=== PATIENT | male | born 1960 | race Caucasian/White ===

== ENCOUNTER 2017-06-10 08:41 | Day surgery (SDC) | payer SELFPAY ==
[2017-06-05 15:09] VITALS: BMI 35.9
[~2017-06-10 08:41] MED LIST: LACTATED RINGERS 1,000 ML IV SCH
[2017-06-10 09:12] VITALS: TEMP 98.1
[2017-06-10] MEDS ORDERED: PROPOFOL 10 MG/ML 20 ML VIAL IV ONE (09:35)
--- NOTE | 2017-06-10 10:01 | P.PCN ---
Date of Procedure: 06/10/17 Procedure(s) Performed: Procedure: Total colonoscopy. Preoperative diagnosis: Screening for neoplasia, patient has history of polyps and family history of colon cancer in his maternal grandmother. Postoperative diagnosis: Exam within normal limits. Preparation: HalfLytely prep. Sedation: Was provided by anesthesia. Brief clinical history: The patient is a 57-year-old male who is scheduled for this evaluation for screening for neoplasia because of history of polyps and family history of colon cancer in his maternal grandmother. His last colonoscopy was 5 years ago. The patient has no abdominal complaints, bleeding or anemia. Procedure: With the patient on his left lateral decubitus position and after informed consent and adequate sedation, the perianal area was inspected and it did not show any fissures or fistulas. There were no masses felt on digital rectal examination. The Olympus CFQ 160L video colonoscope was then inserted in the rectum in the usual fashion and advanced to the cecum. The mucosa appeared healthy. No polyps or tumors were seen or any obvious diverticular disease or other pathology. I retroflexed the endoscope in the rectum before the endoscope was withdrawn. The patient tolerated the procedure well. Plan: The patient was reassured. In light of his history, I am recommending repeat exam in 5 years. He will follow up with you as planned.
[2017-06-10 10:02] VITALS: RESP 16
[2017-06-10 10:15] VITALS: BP 150/93; PULSE 59
== END 2017-06-10 10:32 | disposition home or self-care (01) ==
LOC: ORWHC2ENDO 08:41
DX: Z12.11 Encounter for screening for malignant neoplasm of colon (principal); Z86.010 Personal history of colon polyps; Z80.0 Family history of malignant neoplasm of digestive organs; I10 Essential (primary) hypertension; Z85.828 Personal history of other malignant neoplasm of skin; Z79.891 Long term (current) use of opiate analgesic; Z79.899 Other long term (current) drug therapy
CPT/HCPCS: J2704; G0105

== ENCOUNTER 2019-12-15 16:45 | Observation (INO) | payer OTHER ==
--- NOTE | 2019-12-15 16:50 | ED ---
Chest Pain HPI - General Stated Complaint: chest pain Time Seen by Provider: 12/15/19 16:55 - History of Present Illness Initial Comments: Patient is a 59-year-old male past medical history of hypertension who presents to the emergency department with reported chest pain. Patient reports that patient had chest pain that started one day ago. It is located in the central portion of his chest and feels as something is sitting on his chest. He denies any associated shortness of breath. No ripping or tearing sensation to his back. Admits to associated nausea without vomiting. Denies history of lung or heart disease. No lower extremity swelling. Denies calf pain or calf swelling. No recent travel. She has a history of hypertension. Last stress test was greater than 20 years ago. No other alleviating, precipitating or modifying factors - Related Data Home Medications Medication Instructions Recorded Confirmed Losartan/Hydrochlorothiazide 1 tab PO DAILY 12/15/19 12/15/19 [Losartan-Hctz 100-25 mg Tab] Previous Rx's Medication Instructions Recorded Omeprazole 40 mg PO DAILY #0 12/16/19 Allergies Allergy/AdvReac Type Severity Reaction Status Date / Time No Known Allergies Allergy Verified 12/15/19 18:46 Review of Systems ROS Statement: Those systems with pertinent positive or pertinent negative responses have been documented in the HPI. ROS Other: All systems not noted in ROS Statement are negative. EKG Findings - EKG Comments: EKG Findings:: EKG demonstrates normal sinus rhythm with a ventricular rate of 81. OK interval 148. QRS 94. QTC of 422. Inverted T-wave lead 3. No acute ST segment elevations Past Medical History Past Medical History: Cancer, Hypertension Additional Past Medical History / Comment(s): skin cancer History of Any Multi-Drug Resistant Organisms: None Reported Past Surgical History: Appendectomy Additional Past Surgical History / Comment(s): skin cancer removed from forehead and left arm, surgery "for acid reflux" Past Anesthesia/Blood Transfusion Reactions: Motion Sickness Additional Past Anesthesia/Blood Transfusion Reaction / Comment(s): motrion sickness only in ruff water Past Psychological History: No Psychological Hx Reported Past Alcohol Use History: None Reported Additional Past Alcohol Use History / Comment(s): quit smoking over 30 yrs ago, smoked for 6-8 yrs, 1 PPD Past Drug Use History: None Reported - Past Family History Mother Family Medical History: No Reported History General Exam General appearance: alert, in no apparent distress Head exam: Present: atraumatic, normocephalic, normal inspection Eye exam: Present: normal appearance, PERRL, EOMI. Absent: scleral icterus, conjunctival injection, periorbital swelling ENT exam: Present: normal exam, mucous membranes moist Neck exam: Present: normal inspection. Absent: tenderness, meningismus, lymphadenopathy Respiratory exam: Present: normal lung sounds bilaterally. Absent: respiratory distress, wheezes, rales, rhonchi, stridor Cardiovascular Exam: Present: regular rate, normal rhythm, normal heart sounds. Absent: systolic murmur, diastolic murmur, rubs, gallop, clicks GI/Abdominal exam: Present: soft, normal bowel sounds. Absent: distended, tenderness, guarding, rebound, rigid Extremities exam: Present: normal inspection, full ROM, normal capillary refill. Absent: tenderness, pedal edema, joint swelling, calf tenderness Back exam: Present: normal inspection Neurological exam: Present: alert, oriented X3, CN II-XII intact Psychiatric exam: Present: normal affect, normal mood Skin exam: Present: warm, dry, intact, normal color. Absent: rash Course Vital Signs 12/15/19 12/15/19 16:52 18:41 Temperature 97.9 F Pulse Rate 78 61 Respiratory 18 18 Rate Blood Pressure 147/85 154/98 O2 Sat by Pulse 97 96 Oximetry Chest Pain MDM - MDM Upon arrival the patient is placed into room 3. A thorough history and physical exam is performed. Patient hooked up to continuous pulse ox and cardiac monitoring. A 12-lead EKG is performed. Patient's is taken over for an x-ray of his chest. Laboratory studies are unremarkable. Chest x-ray demonstrates no evidence for acute coronary disease. The results are discussed with the patient. I did recommend hospital admission for continued cardiac monitoring and evaluation by cardiology. The patient did agree to this. I discussed the case with Monie from [facility] who accepted admission. The patient was given an aspirin. He is currently awaiting transport to a bed Disposition Clinical Impression: Chest pain Disposition: ADMITTED IP TO THIS HOSP Condition: Stable Is patient prescribed a controlled substance at d/c from ED?: No Decision to Admit Reason: Admit from EC Decision Date: 12/15/19 Decision Time: 18:34
[2019-12-15 17:20] LABS: Basophils # (A) 0.1 k/uL (0-0.2); Basophils % (A) 1 %; Eosinophils # (A) 0.2 k/uL (0-0.7); Eosinophils % (A) 2 %; HCT 49.4 % (39.0-53.0); HGB 16.3 gm/dL (13.0-17.5); Lymphocytes # (A) 1.6 k/uL (1.0-4.8); Lymphocytes % (A) 16 %; MCH 31.7 pg (25.0-35.0); Mean Platelet Volume 7.5; Monocytes # (A) 0.5 k/uL (0-1.0); Monocytes % (A) 6 %; Neutrophils % (A) 73 %; Platelet Count 316 k/uL (150-450); RBC 5.15 m/uL (4.30-5.90); RDW 12.5 % (11.5-15.5); WBC 9.6 k/uL (3.8-10.6)
[2019-12-15 17:28] LABS: INR 0.9 (<1.2); Partial Thromboplastin Time 24.3 sec (22.0-30.0); Prothrombin Time 9.8 sec (9.0-12.0)
--- NOTE | 2019-12-15 17:36 | XR ---
EXAMINATION TYPE: XR chest 2V DATE OF EXAM: 12/15/2019 COMPARISON: NONE HISTORY: Shortness of breath TECHNIQUE: Frontal and lateral views of the chest are obtained. FINDINGS: Scattered senescent parenchymal changes noted. No evidence for infiltrate. No evidence for atelectasis. Heart size is stable. Mediastinal structures are stable and grossly unremarkable. No evidence for hilar prominence. Degenerative changes dorsal spine. IMPRESSION: 1. No evidence for acute pulmonary disease.
[2019-12-15 17:44] LABS: ALT 21 U/L (4-49); AST 25 U/L (17-59); African American GFR (CKD) >90 (>60 ml/min/1.73 sqM); Albumin 4.5 g/dL (3.5-5.0); Alkaline Phosphatase 98 U/L (38-126); Anion Gap 6 mmol/L; Blood Urea Nitrogen 25 mg/dL (9-20); Calcium 9.5 mg/dL (8.4-10.2); Carbon Dioxide 27 mmol/L (22-30); Chloride 107 mmol/L (98-107); Glucose 108 mg/dL (74-99); Magnesium 2.2 mg/dL (1.6-2.3); Non-African American GFR(CKD) >90 (>60 ml/min/1.73 sqM); Sodium 140 mmol/L (137-145); Total Bilirubin 0.6 mg/dL (0.2-1.3)
[2019-12-15] MEDS ORDERED: NALOXONE 0.4 MG/ML 1 ML VIAL IV PRN (18:35)
[2019-12-15] MEDS ORDERED: ASPIRIN 81 MG PO STA (18:38)
[2019-12-16] MEDS ORDERED: PANTOPRAZOLE 40 MG TABLET PO SCH (07:30)
[2019-12-16 07:34] LABS: Basophils # (A) 0.1 k/uL (0-0.2); Basophils % (A) 1 %; Eosinophils # (A) 0.2 k/uL (0-0.7); Eosinophils % (A) 4 %; HCT 47.9 % (39.0-53.0); HGB 15.6 gm/dL (13.0-17.5); Lymphocytes # (A) 1.6 k/uL (1.0-4.8); Lymphocytes % (A) 25 %; MCH 31.5 pg (25.0-35.0); MCHC 32.6 g/dL (31.0-37.0); MCV 96.7 fL (80.0-100.0); Mean Platelet Volume 7.5; Monocytes # (A) 0.4 k/uL (0-1.0); Monocytes % (A) 7 %; Neutrophils # (A) 3.8 k/uL (1.3-7.7); Neutrophils % (A) 61 %; Platelet Count 281 k/uL (150-450); RBC 4.95 m/uL (4.30-5.90); RDW 12.5 % (11.5-15.5); WBC 6.2 k/uL (3.8-10.6)
[2019-12-16 07:46] LABS: African American GFR (CKD) >90 (>60 ml/min/1.73 sqM); Anion Gap 4 mmol/L; Blood Urea Nitrogen 25 mg/dL (9-20); Calcium 9.3 mg/dL (8.4-10.2); Carbon Dioxide 30 mmol/L (22-30); Chloride 106 mmol/L (98-107); Glucose 107 mg/dL (74-99); Non-African American GFR(CKD) >90 (>60 ml/min/1.73 sqM); Potassium 3.9 mmol/L (3.5-5.1); Sodium 140 mmol/L (137-145)
--- NOTE | 2019-12-16 07:50 | P.HPIM ---
History of Present Illness Patient is a pleasant a 59-year-old male came in with complaints of chest pain mostly in the epigastric area has a long-standing history of her gases. Reflux disease and patient had a procedure I believe Tushar's fundoplication, had a similar pain episodes with nausea and epigastric area on and off mild burning Sensation. Patient came in because the he checks his pulse and he felt he had skipped beats. Patient EKG here which showed sinus rhythm without any acute ST- T wave changes. Patient had 3 sets of troponins which were negative patient chest pain is not associated diaphoresis or shortness of breath nonpleuritic. Patient denied any fever chills cough. Review of Systems REVIEW OF SYSTEMS: CONSTITUTIONAL: No fever, no malaise, no fatigue. HEENT: No recent visual problems or hearing problems. Denied any sore throat. CARDIOVASCULAR: No orthopnea, PND, no palpitations, no syncope. PULMONARY: No shortness of breath, no cough, no hemoptysis. GASTROINTESTINAL: No diarrhea, no vomiting. NEUROLOGICAL: No headaches, no weakness, no numbness. HEMATOLOGICAL: Denies any bleeding or petechiae. GENITOURINARY: Denies any burning micturition, frequency, or urgency. MUSCULOSKELETAL/RHEUMATOLOGICAL: Denies any joint pain, swelling, or any muscle pain. ENDOCRINE: Denies any polyuria or polydipsia. The rest of the 14-point review of systems is negative. Past Medical History Past Medical History: Cancer, Hypertension Additional Past Medical History / Comment(s): skin cancer History of Any Multi-Drug Resistant Organisms: None Reported Past Surgical History: Appendectomy Additional Past Surgical History / Comment(s): skin cancer removed from forehead and left arm, surgery "for acid reflux" Past Anesthesia/Blood Transfusion Reactions: Motion Sickness Additional Past Anesthesia/Blood Transfusion Reaction / Comment(s): motrion sickness only in ruff water Past Psychological History: No Psychological Hx Reported Smoking Status: Former smoker Past Alcohol Use History: None Reported Additional Past Alcohol Use History / Comment(s): quit smoking over 30 yrs ago, smoked for 6-8 yrs, 1 PPD Past Drug Use History: None Reported - Past Family History Mother Family Medical History: No Reported History Medications and Allergies Home Medications Medication Instructions Recorded Confirmed Type Losartan/Hydrochlorothiazide 1 tab PO DAILY 12/15/19 12/15/19 History [Losartan-Hctz 100-25 mg Tab] Omeprazole 40 mg PO DAILY #0 12/16/19 12/15/19 Rx Allergies Allergy/AdvReac Type Severity Reaction Status Date / Time No Known Allergies Allergy Verified 12/15/19 18:46 Physical Exam Vitals: Vital Signs Temp Pulse Pulse Resp BP BP Pulse Ox 12/16/19 03:00 97.7 F 65 126/77 97 12/15/19 21:45 58 L 12/15/19 19:46 98.3 F 58 L 133/86 95 12/15/19 18:41 61 18 154/98 96 12/15/19 16:52 97.9 F 78 18 147/85 97 Intake and Output 12/15/19 12/16/19 12/16/19 22:59 06:59 14:59 Intake Total 400 Balance 400 Intake: Oral 400 Other: Voiding Method Toilet Toilet Weight 102.965 kg PHYSICAL EXAMINATION: GENERAL: The patient is alert and oriented x3, not in any acute distress. Well developed, well nourished. HEENT: Pupils are round and equally reacting to light. EOMI. No scleral icterus. No conjunctival pallor. Normocephalic, atraumatic. No pharyngeal erythema. No thyromegaly. CARDIOVASCULAR: S1 and S2 present. No murmurs, rubs, or gallops. PULMONARY: Chest is clear to auscultation, no wheezing or crackles. ABDOMEN: Soft, nontender, nondistended, normoactive bowel sounds. No palpable organomegaly. MUSCULOSKELETAL: No joint swelling or deformity. EXTREMITIES: No cyanosis, clubbing, or pedal edema. NEUROLOGICAL: Gross neurological examination did not reveal any focal deficits. SKIN: No rashes. Results CBC & Chem 7: 12/16/19 06:26 12/16/19 06:26 Labs: Abnormal Lab Results - Last 24 Hours (Table) 12/15/19 12/16/19 Range/Units 17:09 06: BUN 25 H 25 H (9-20) mg/dL Glucose 108 H 107 H (74-99) mg/dL Thrombosis Risk Factor Assmnt - Choose All That Apply Any of the Below Risk Factors Present?: Yes Each Factor Represents 1 point: Obesity (BMI >25) Thrombosis Risk Factor Assessment Total Risk Factor Score: 1 Thrombosis Risk Factor Assessment Level: Low Risk Assessment and Plan Plan: -Chest pain: Ruled out acute coronary syndromes, patient will undergo echocardiogram and a stress test if that's negative patient will be discharged with chest pain is mostly secondary to gaseous visual reflux disease patient was advised take Prilosec on as-needed basis the parasacral increased to 40 mg and patient was asked to take it for 14 days. -Hypertension: Patient will be resumed on his home medications -Back pain: Chronic. Weight loss and dietary management was advised His stresses is negative patient will be discharged later today
--- NOTE | 2019-12-16 07:50 | P.DS ---
Providers Date of admission: 12/15/19 18:35 Attending physician: Joshua Dang Consults: 12/15/19 18:35 Consult Physician Urgent Consulting Provider: [facility] Consult Reason/Comments: acute chest pain, possible acs Do you want consulting provider notified?: Yes Primary care physician: Dung Draper [facility] Course: Please refer to my HPI for further details Patient Condition at Discharge: Stable Plan - Discharge Summary Discharge Rx Participant: No New Discharge Prescriptions: Continue Losartan/Hydrochlorothiazide [Losartan-Hctz 100-25 mg Tab] 1 tab PO DAILY Changed Omeprazole 40 mg PO DAILY #0 Discharge Medication List Losartan/Hydrochlorothiazide [Losartan-Hctz 100-25 mg Tab] 1 tab PO DAILY 12/15/19 [History] Omeprazole 40 mg PO DAILY #0 12/16/19 [Rx] Follow up Appointment(s)/Referral(s): Dung Draper MD [Primary Care Provider] - 3 Days Discharge Disposition: HOME SELF-CARE
[2019-12-16 08:36] VITALS: BP 156/99; PULSE 62; RESP 16; TEMP 98.3
[2019-12-16] MEDS ORDERED: LOSARTAN-HCTZ 50-12.5 MG 1 EACH TAB PO SCH (09:00)
--- NOTE | 2019-12-16 10:48 | ECHOF ---
Referral Reason:cp MEASUREMENTS -------- HEIGHT: 172.7 cm WEIGHT: 103.0 kg BP: 126/77 RVIDd: 3.8 cm (< 3.3) IVSd: 1.7 cm (0.6 - 1.1) LVIDd: 3.7 cm (3.9 - 5.3) LVPWd: 1.5 cm (0.6 - 1.1) IVSs: 1.9 cm LVIDs: 2.6 cm LVPWs: 2.0 cm LAESV Index (A-L): 28.04 ml/m Ao Diam: 2.9 cm (2.0 - 3.7) AV Cusp: 1.9 cm (1.5 - 2.6) MV EXCURSION: 20.180 mm (> 18.000) MV EF SLOPE: 74 mm/s (70 - 150) EPSS: 0.3 cm MV E Kamlesh: 0.64 m/s MV DecT: 224 ms MV A Kamlesh: 0.83 m/s MV E/A Ratio: 0.78 RAP: 5.00 mmHg RVSP: 27.41 mmHg FINDINGS -------- Sinus rhythm. This was a technically difficult study with suboptimal views. The left ventricular size is normal. There is moderate concentric left ventricular hypertrophy. O verall left ventricular systolic function is normal with, an EF between 55 - 60 %. The diastolic fi lling pattern is normal for the age of the patient 10.09. The right ventricle is mild to moderately enlarged. Normal LA size by volume 22+/-6 ml/m2. The right atrium is mildly enlarged. 5.0mg of Lumason was utilized for enhancement of images Interatrial and interventricular septum intact. There is mild aortic valve sclerosis. There is no evidence of aortic regurgitation. There is no e vidence of aortic stenosis. The mitral valve is normal. Mild mitral regurgitation is present. Mild tricuspid regurgitation present. There is no evidence of pulmonary hypertension. The right v entricular systolic pressure, as measured by Doppler, is 27.41mmHg. There is no pulmonic regurgitation present. The aortic root size is normal. The inferior vena cava is mildly dilated. There is no pericardial effusion. CONCLUSIONS -------- 1. There is moderate concentric left ventricular hypertrophy. 2. Overall left ventricular systolic function is normal with, an EF between 55 - 60 %. 3. The diastolic filling pattern is normal for the age of the patient 10.09 4. The right ventricle is mild to moderately enlarged. 5. Normal LA size by volume 22+/-6 ml/m2. 6. The right atrium is mildly enlarged. 7. There is mild aortic valve sclerosis. 8. Mild mitral regurgitation is present. 9. Mild tricuspid regurgitation present. PATCH PRESS OPERATOR: Nilda Paul RDCS
--- NOTE | 2019-12-16 11:29 | CONS ---
CONSULTATION Mr. Bowers is a 59-year-old male with a history of gastroesophageal reflux disease, history of hyper-attention, who presented with symptoms of chest discomfort as well as arrhythmia. The patient is quite active physically with cardiac recently without any symptoms. Yesterday, he has vague discomfort in the chest, not activity related without any radiation. He also checked his pulse that was irregular. He did not have any syncope. No PND. No orthopnea. No peripheral edema. His activity level is stable. Patient has no history of cardiac disease or heart failure. MEDICATION: At home include omeprazole, losartan HCT 100-25 mg daily. His coronary risk factor is negative for hypertension, diabetes, he is a nonsmoker. He is hypertensive. REVIEW OF SYSTEMS: RESPIRATORY SYSTEM: He has no recent cough or wheezing. No history of obstructive lung disease. GI SYSTEM: No recent GI bleeding. No peptic ulcer disease. SYSTEM: No dysuria or hematuria. NERVOUS SYSTEM: No stroke or seizure. PHYSICAL EXAMINATION: He is a 59-year-old male, alert, oriented, in no apparent distress. Blood pressure 126/70 with a heart in the 60s. HEAD: Normocephalic. EYES: Sclerae nonicteric. NECK: Good upstroke, no bruit, no jugular venous distension. LUNGS: Clear to auscultation. HEART: Regular rate and rhythm, S1, S2. No S3. No S4. No murmur or rub. ABDOMEN: Soft, nontender, positive bowel sounds, no organomegaly. EXTREMITIES: No edema, intact pulses. LAB DATA: Revealed troponin less than 0.012. BUN and creatinine 25 and 0.88, potassium 3.9, hemoglobin 15.6. EKG revealed sinus mechanism without any acute changes. Chest x-ray revealed no acute infiltrate. IMPRESSION: 1. Chest discomfort, has some atypical features for ischemic heart disease, no evidence of acute coronary syndrome. 2. History of hypertension. 3. History of gastroesophageal reflux disease. RECOMMENDATION: I recommend proceeding with a stress echocardiogram as well as transthoracic echo and depending on those findings, further recommendation will be made. Thank you for this consult. Will follow with you. MMODL / IJN: [id number] /
--- NOTE | 2019-12-16 14:41 | ECHOS ---
STRESS ECHOCARDIOGRAM LUMASON: 1 Vial INDICATIONS: Chest pain. MEDICATIONS: Losartan, Omeprazole. BASELINE HEART RATE: 66 BASELINE BLOOD PRESSURE: 130/63 MAXIMUM HEART RATE: 142 MAXIMUM BLOOD PRESSURE: 214/86 85% MPHR: 136 100% MPHR: 160 METS: 10.7 MAXIMUM STAGE REACHED: 10.7 TOTAL EXERCISE TIME: 9:15 CLINICAL INFORMATION: Baseline rhythm is sinus mechanism, rate 66, RSR prime, nonspecific ST-T wave changes, baseline blood pressure 130/63 mmHg. Patient exercised on Herson protocol for 9 minutes, 15 seconds, reaching a peak rate 142 beats per minute which is equal to 88% maximum predicted heart rate. Peak blood pressure 214/86 mmHg. Test was terminated due to fatigue. There was no chest pain. Electrocardiograph monitoring revealed no evidence of diagnostic ischemic ST deviation. FINDINGS: Baseline echocardiogram revealed normal wall motion. At peak exercise, there was normal wall motion augmentation with no hypokinesis or dyskinesis. CONCLUSION: 1. Good exercise tolerance with normal echocardiograph response to exercise. 2. Normal stress echocardiogram with no evidence of stress-induced ischemia. MMODL / IJN: [id number] /
== END 2019-12-16 14:37 | disposition home or self-care (01) ==
LOC: EC 16:45 → 3NCARDOBS 18:35
PROVIDERS: ADMIT Hospitalist; ATTEND Hospitalist
DX: R07.89 Other chest pain (principal); I10 Essential (primary) hypertension; K21.9 Gastro-esophageal reflux disease without esophagitis; I08.3 Combined rheumatic disorders of mitral, aortic and tricuspid valves; G89.29 Other chronic pain; M54.9 Dorsalgia, unspecified; Z85.828 Personal history of other malignant neoplasm of skin; Z87.891 Personal history of nicotine dependence; Z98.890 Other specified postprocedural states; Z79.899 Other long term (current) drug therapy
CPT/HCPCS: 93005 ×2; 99285; 36415; 93306; 93351; 83880; 80053; 80048; 83690; 83735; 84484; 85025 ×2; 85610; 85730; 71046; G0378 ×2; Q9950

== ENCOUNTER → 2020-07-08 | Outpatient (CLI) | payer SELFPAY ==
[2020-07-08 23:30] LABS: HCT 46.3 % (39.6-50.0); MCH 32.1 pg (27.0-32.0); MCHC 34.6 g/dL (32.0-37.0); MCV 92.8 fL (80.0-97.0); Mean Platelet Volume 10.6 fL (9.5-12.2); Platelet Count 355 X 10*3/uL (140-440); RBC 4.99 X 10*6/uL (4.40-5.60); WBC 10.97 X 10*3/uL (4.50-10.00)
[2020-07-09 00:59] LABS: Erythrocyte Sedimentation Rate 2 mm/Hr (0-20)
== END | disposition home or self-care (01) ==
LOC: LABWHC1 16:17
PROVIDERS: ATTEND Family Medicine
DX: M54.9 Dorsalgia, unspecified (principal); I10 Essential (primary) hypertension
CPT/HCPCS: 36415; 82465; 84520; 85027; 85652